=== PATIENT | male | born 1945 | race Caucasian/White ===

== ENCOUNTER 2021-07-23 15:00 | Outpatient (RCR) | payer MEDICARE, SELFPAY ==
--- NOTE | 2021-05-26 08:12 | PTOPEVAL ---
Thank you for referring Cole Arcos to [facility].? The patient is scheduled to be seen for therapy?2x/week for 4 weeks. Please review, sign, date and return this plan of care KRISSY. I agree with and certify that the following plan of care is medically necessary. Referring Physician Date Attending Provider: Uday Lorenzana Assessment Status Evaluation Evaluation Information Diagnosis R TKA Onset 05/21/2021 Cause surgical Subjective Information Pt states his recovery thus Query Text:As Reported By Patient/ far has been slow but good. Family His pain has been manageable with medication and position changes. He reports good compliance with his home exercises and is doing them 2- 3 times a day Previous Treatments For This Problem Hospital based therapy for 1 day, given exercise program there Prior Level of Function Activity Level (Last 3 Months) Activity of Daily Living Ability Independent Indoor/Home Mobility Independent Community Mobility Needs Some Help Stairs Ability Independent Functional Cognition (Planning, Shopping Independent , Taking Medications) Cooking Yes Cleaning Yes Laundry Yes Shopping Yes Driving Yes Home Setting Home Type House Environmental Barriers Stairs, 2-4 Living Situation With Spouse Caregiver Responsibilities Comment Spouse does grocery shopping Mobility Assistive Devices (Used Last 3 Cane,Walker, Wheeled Months) Bathroom Environment Shower, Open Bathing Equipment Built in Shower Seat Additional Prior Level of Function Pt reports using his cane in Comments the middle of the night when needing to get up to use the restroom. He reports no need for an assistive device throughout the day. Pt has used wheeled walker since surgery. Pain Assessment Pain Scale Used Numeric (1 - 10) Self Report Pain Assessment Right Knee(s) Reported Pain Level 4 Pain Description Aching,Incisional,Tender on Palpation Pain Frequency Acute Lowest Pain Intensity 1 Greatest Pain Intensity 7 Pain Aggravating Factors Bending,Exercise/Act
--- NOTE | 2021-06-22 15:57 | PTOPEVAL ---
Physical Therapy Progress Note Thank you for referring Cole Arcos to [facility].? Cole has been seen for 9 therapy visits to address his LE impairments from his knee surgery. See objective measures below for updated information on function and limitations. He is progressing towards his therapy goals. The patient is scheduled to be seen for therapy? 2 x/week for 4 weeks. Please review, sign, date and return this plan of care KRISSY. I agree with and certify that the following plan of care is medically necessary. Referring Physician Date Attending Provider: Uday Lorenzana MD *PT Outpatient Evaluation Start: 05/25/21 10:42 Freq: Status: Active Protocol: Document 06/22/21 14:52 CAP (Rec: 06/22/21 15:45 CAP [id number]) Therapy Assessment Status Assessment Status Assessment Status Re-evaluation Outpatient Past Medical History Past Medical History Source of Past Medical History Patient Cardiovascular History Hx Hypertension Yes: meds Genitourinary History Hx Other Genitourinary Disorders Yes: history of prostate cancer Musculoskeletal History Hx Orthopedic Surgery Yes: R TKA 05/21/2021 L TKA Endocrine History Hx Diabetes Yes: prediabetes Other History Hx Cancer Yes: previous prostate cancer Evaluation Information Problem Diagnosis R TKA Onset 05/21/2021 Cause surgical Subjective Information Reports he is feeling better, Query Text:As Reported By Patient/ but not perfect yet. He has Family increased pain with the stretching. He is walking with use of the cane. He feels decreased balance without the AD. He is performing his HEP. Pain Assessment Self Report Pain Assessment Right Knee(s) Reported Pain Level 1 Pain Description Aching,Tightness Lowest Pain Intensity 1 Greatest Pain Intensity 2 Pain Score Pain Score 1: Self Report Lower Extremity Range of Motion General Lower Extremity Range of Motion Limitations Muscle Length Restriction,Pain ,Soft Tissue Restriction Gross Lower Extremity Range of Motion R knee AROM -10-88 deg eval Comments and update -15 to 108 dg Lower Extremity Muscle Strength Testing General Lower Extremity Strength Reason Not Measured WFL/Left Hip Strength Right Hip Flexion Strength 5 Normal Hip Extension Strength 4- Good - Hip Abduction Strength 3 Fair Knee Strength Bilateral Knee Flexion Strength 4+ Good + Knee Extension Strength 5 Normal Extremity Circumference Asses
--- NOTE | 2021-07-24 11:06 | PTOPEVAL ---
Physical Therapy discharge summary Thank you for referring Cole Arcos to [facility].? Cole has attended 17 therapy visits to address his LE limitations following knee surgery. He has reached maximal potential with skilled therapy services at this time. Will DC skilled therapy services with goals met to partially met at at this time. Please review, sign, date and return this discharge summary KRISSY. I agree with and certify that the following plan of care is medically necessary. Referring Physician Date Attending Provider: Uday Lorenzana Diagnosis R TKA Onset 05/21/2021 Cause surgical Subjective Information He is able to preform his Query Text:As Reported By Patient/ daily task without difficulty Family He walked 2 miles with the walking stick without difficulty. He has been working his the knee ext stretching. Pain Assessment Right Knee(s) Reported Pain Level 0 Pain Description Aching,Tightness Lowest Pain Intensity 0 Greatest Pain Intensity 2 Lower Extremity Range of Motion General Lower Extremity Range of Motion Gross Lower Extremity Range of Motion R knee AROM -4 to 115 dg Comments right ankle DF: neutral Lower Extremity Muscle Strength Testing General Lower Extremity Strength Gross Lower Extremity Strength L SLS - 15 sec poor trunk/glut control R SLS - 8 sec left hip abd: 3/5, ext: 4+/5 left knee flex/ext 5/5 Hip Strength Right Hip Flexion Strength 5 Normal Hip Extension Strength 4+ Good + Hip Abduction Strength 3 Fair Knee Strength Bilateral Knee Flexion Strength 4+ Good + Knee Extension Strength 5 Normal Extremity Circumference Assessment Location Right Body Part Knee Circumference Comments Superior patellar right: improved from 44 cm to 44 cm knee joint line right: 43 cm eval and 42. 5 update inferior pataler pole R: 40cm eval and 40.5cm Gait Assessment Gait Pattern Antalgic Gait Gait Pattern Observed Decreased Stride Length - Left ,Decreased Stride Length - Right,Decreased Weight Shift - Right,Excessive Knee Flex - Right,No Heel Strike - Left,No Heel Strike - Right,Trunk Lateral Lean - Left - extens
== END 2021-07-27 09:19 | disposition home or self-care (01) ==
LOC: ANHPT 15:00
PROVIDERS: PCP Internal Medicine
DX: Z47.1 Aftercare following joint replacement surgery (principal); Z96.651 Presence of right artificial knee joint
CPT/HCPCS: 97014; 97110; 97112; 97116; 97140; 97161; 97530; G0283

== ENCOUNTER 2023-05-18 02:07 | Day surgery (SDC) | payer MEDICARE, SELFPAY ==
[2023-04-29 11:09] VITALS: BMI 27.8
--- NOTE | 2023-05-16 11:24 | SUR.PREOP ---
Patient called regarding upcoming procedure. Reviewed preop instructions, appointment times, and procedure prep.
[2023-05-18 12:10] VITALS: BP 133/78; PULSE 86; RESP 16; TEMP 36.2; O2SAT 97; BMI 28.5
[2023-05-18] MEDS: LACTATED RINGERS 1,000 ML 150 ML IV CONT ×2 (12:12→13:37)
--- NOTE | 2023-05-18 12:13 | SUR.PREOP ---
Pt reported that he took a fall last night around midnight after doing his colonoscopy prep. Per pt he stood up from the toilet and flushed but he doesn't remember anything after that. Pt stated she found him on the bathroom floor. At that point she helped him up and he has been fine since then. Pt did point out that he had a cut behind his left year from the fall. This was then reported to Dr. Reinoso. Pt is alert and orientated and vital signs are stable.
--- NOTE | 2023-05-18 12:16 | P.PNAN_ITS ---
Anes - Initial Pre Proc Eval Procedure: Operation Date: 05/18/23 13:30 Proposed Procedures p Colonoscopy - Luis Ribeiro MD Date/Time: 05/18/23 12:16 Surgeon: Luis Ribeiro MD Pre Op Diagnosis: hx colon polyp Patient Data Age: 78 Gender: M Height: 1.78 m Weight: 90.4 kg Last Vital Signs Temp 97.2 F L 05/18/23 12:10 Pulse 86 05/18/23 12:10 Resp 16 05/18/23 12:10 BP 133/78 05/18/23 12:10 Pulse Ox 97 05/18/23 12:10 O2 Del Method Room Air 05/18/23 12:10 Allergies Allergy/AdvReac Type Severity Reaction Status Date / Time No Known Allergies Allergy Verified 05/18/23 12:09 Home Medications Medication Instructions Recorded Confirmed Type amlodipine 2.5 mg tablet 2.5 mg PO DAILY 04/23/19 05/18/23 History aspirin 81 mg tablet,delayed 81 mg PO USEASDIRECTD 04/23/19 05/18/23 History release (Adult Low Dose Aspirin) chlorthalidone 25 mg tablet 25 mg PO USEASDIRECTD 04/23/19 05/18/23 History losartan 100 mg tablet 100 mg PO DAILY 03/11/22 05/18/23 History Patient hx anesthesia problems: none Family hx anesthesia problems: none Results Review: All pre-operative results and documents have been reviewed as part of the pre- operative evaluation. [facility] Past Medical History Medical History Cholecystectomy planned Elevated PSA Hypertension PAC (premature atrial contraction) Prediabetes Prostate cancer Surgical History Surgical History Total knee replacement status 05/27/2017 Total knee replacement status right knee 05/2021 Family History Family History Father Mother Family history of coronary artery disease Sibling Family history of coronary artery disease Social History Social History (Updated 03/11/22 @ 14:05 by Katia Benavides) Social History: Caffeine-Tea Smoking status: Never smoker Alcohol intake: current Drinks per week: 2 Alcohol use details: Pt drinks rarely. Substance use type: does not use Living arrangements: with family Spiritual care concerns: No Anes - Eval Final PreProcedure Day of Procedure 05/18/23 12:16 Patient weight: normal Heart: regular rate and rhythm Lungs: clear to auscultation Airway: Mallampati scale class II Neurological: alert and oriented Last oral intake: >/= 8 hours ASA classification: III Emergent: no Anesthetic plan: proceed Anesthesia type and monitoring: general GIVS and standard monitoring Results Review: All pre-operative results and documents have been reviewed as part of the pre- operative evaluation. Informed Consent: The patient's anesthetic plan and its attendant risks and benefits were discu ssed with the patient/family/POA. Questions were solicited and answers provided to the satisfaction of the patient/family/POA.
--- NOTE | 2023-05-18 13:25 | PM.HPGS ---
History of Present Illness History of Present Illness Consent: Risks, benefits, and alternatives have been discussed and questions answered. Patient agrees to proceed with procedure. Chief complaint: hx colon polyp Narrative: Cole Arcos is a 78 year old male with colon polyp in 2018 Review of Systems Constitutional: Constitutional: Denies headache(s) and Denies weakness Eyes: Eyes: Denies blurry vision ENT: Reports Normal hearing present, Denies headache(s) and Denies neck pain Cardiovascular: Cardiovascular: Denies chest pain and Denies dyspnea Respiratory: Respiratory: Denies dyspnea Gastrointestinal: Gastrointestinal: Reports no additional gastrointestinal complaints Genitourinary: Genitourinary: Denies dysuria Musculoskeletal: Musculoskeletal: Denies neck pain Integumentary/Breasts: Skin/Breast: Denies dry skin Neurologic: Reports Normal hearing present, Denies headache(s) and Denies weakness Psychiatric: Psychiatric: Denies anxiety Endocrine: Endocrine: Denies change in body appearance Hematologic/Lymphatic: Hematologic/Lymphatic: Denies easy bleeding Allergic/Immunologic: Allergic/Immunologic: Denies urticaria PMF Past Medical History Medical History Cholecystectomy planned Elevated PSA Hypertension PAC (premature atrial contraction) Prediabetes Prostate cancer Surgical History Surgical History Total knee replacement status 05/27/2017 Total knee replacement status right knee 05/2021 Family History Family History Father Mother Family history of coronary artery disease Sibling Family history of coronary artery disease Social History Social History (Updated 03/11/22 @ 14:05 by Katia Benavides) Social History: Caffeine-Tea Smoking status: Never smoker Alcohol intake: current Drinks per week: 2 Alcohol use details: Pt drinks rarely. Substance use type: does not use Living arrangements: with family Spiritual care concerns: No Meds Home Medications and Allergies Home Medications Medication Instructions Recorded Confirmed Type amlodipine 2.5 mg tablet 2.5 mg PO DAILY 04/23/19 05/18/23 History aspirin 81 mg tablet,delayed 81 mg PO USEASDIRECTD 04/23/19 05/18/23 History release (Adult Low Dose Aspirin) chlorthalidone 25 mg tablet 25 mg PO USEASDIRECTD 04/23/19 05/18/23 History losartan 100 mg tablet 100 mg PO DAILY 03/11/22 05/18/23 History Allergies Allergy/AdvReac Type Severity Reaction Status Date / Time No Known Allergies Allergy Verified 05/18/23 12:09 Vital Signs Vital Signs - 24 hr 05/18/23 12:10 Temperature 97.2 F L Pulse Rate 86 Respiratory Rate 16 Blood Pressure 133/78 Pulse Oximetry 97 Oxygen Delivery Room Air Exam Const: General: comfortable and no acute distress HENMT: Face/Nose/Sinus: Normal nares present Eyes: General: appearance normal, both eyes and all related structures Neck: Neck: no JVD Resp: Auscultation: clear to auscultation bilaterally Cardio: Rate: regular rate Rhythm: regular rhythm GI: Inspection: non-distended GI Palp: Yes Soft to palpation Skin: General skin exam: normal color Neuro: General: gait normal Speech: normal speech Extrem: General: normal to inspection Psych: Mental Status: mental status grossly normal Assessment and Plan Assessment and plan (1) History of colonic polyps: Code(s): Z86.010 - Personal history of colonic polyps Status: Acute Assessment and Plan: colonoscopy
[2023-05-18 13:49] VITALS: BP 104/72; PULSE 72; RESP 18; O2SAT 97
[2023-05-18 13:59] VITALS: BP 134/83; PULSE 82; RESP 20; O2SAT 99
[2023-05-18 14:09] VITALS: BP 136/92; PULSE 71; RESP 20; O2SAT 100
== END 2023-05-18 14:19 | disposition home or self-care (01) ==
PROVIDERS: PCP Internal Medicine; Visit Provider Internal Medicine Gastroenterology
PROC: 0DJD8ZZ Inspection of Lower Intestinal Tract, Via Natural or Artificial Opening Endoscopic (ICD-10-PCS; CPT 45378; principal; 2023-05-18 13:30)
DX: Z12.11 Encounter for screening for malignant neoplasm of colon (principal); K57.30 Diverticulosis of large intestine without perforation or abscess without bleeding; K64.8 Other hemorrhoids; Z86.010 Personal history of colon polyps; I10 Essential (primary) hypertension; R73.03 Prediabetes; Z85.46 Personal history of malignant neoplasm of prostate; Z79.82 Long term (current) use of aspirin
CPT/HCPCS: G0105; J2704; J7120